=== PATIENT | male | born 1965 | race Caucasian/White ===

== ENCOUNTER 2024-03-01 06:00 | Day surgery (SDC) | payer BC ==
[~2024-03-01 06:00] MED LIST: Sodium Chloride 0.9% 10 ML Syringe FLUSH PRN; Sodium Chloride 0.9% 10 ML Syringe FLUSH SCH
[2024-03-01] MEDS: Lactated Ringers 1,000 ML IV SCH (06:00)
[2024-03-01] MEDS: Pregabalin 25 MG Cap PO ONE (06:16)
[2024-03-01] MEDS: Acetaminophen 325 MG Tab PO ONE (06:16)
[2024-03-01] MEDS: oxyCODONE ER 10 MG TAB.ER PO ONE (06:17)
[2024-03-01] MEDS ORDERED: ceFAZolin 2 GM Vial ONE (06:31)
[2024-03-01] MEDS ORDERED: Midazolam 1 MG/ML 2 ML SDV ONE (06:31)
[2024-03-01] MEDS ORDERED: Ropivacaine 0.5% 5 MG/ML 30 ML SDV ONE (06:31)
[2024-03-01] MEDS ORDERED: Dexamethasone 4 MG/ML 5 ML MDV ONE (07:08)
[2024-03-01] MEDS ORDERED: dexmedeTOMIDine HCl 200 MCG/2 ML SDV ONE (07:08)
[2024-03-01] MEDS ORDERED: Sodium Chloride 0.9% 100 ML ONE (07:09)
[2024-03-01] MEDS: Morphine 8 MG, EPINEPHrine 0.3 MG, Cefuroxime 750 MG, Ketorolac 30 MG, Sodium Chloride ... PRN (08:07)
[2024-03-01] MEDS: Tranexamic Acid 1,000 MG/10 ML Vial ONE (08:13)
[2024-03-01] MEDS ORDERED: Ketorolac 30 MG/ML SDV ONE (08:25)
[2024-03-01] MEDS ORDERED: oxyCODONE 5 MG Tab PO PRN (09:44)
[2024-03-01] MEDS ORDERED: HYDROmorphone 0.5 MG/0.5 ML Syringe IVPUSH PRN (11:10)
[2024-03-01] MEDS ORDERED: fentaNYL 100 MCG/2 ML SDV IVPUSH PRN (11:10)
[2024-03-01] MEDS ORDERED: Ondansetron 4 MG/2 ML SDV IVPUSH PRN (11:10)
[2024-03-01] MEDS: VANCOmycin 1 GM SDV ONE (12:51)
== END 2024-03-01 13:45 | disposition home or self-care (01) ==
LOC: JD.SDS 06:00
PROVIDERS: ATTEND Orthopaedic Surgery
DX: M17.11 Unilateral primary osteoarthritis, right knee (principal); Z88.1 Allergy status to other antibiotic agents; Z79.899 Other long term (current) drug therapy
CPT/HCPCS: 0055T; 27447; 73560; 97110; 97116; 97162; A9270; C1713; C1776; J0171; J0690; J0697; J1100; J1885; J2250; J2272; J2795; J7120; 01400; 64447; J3490

== ENCOUNTER → 2025-01-10 | Day surgery (SDC) | payer BC ==
[~2025-01-10] MED LIST changes: +Dexamethasone 4 MG/ML 5 ML MDV ONE; +Lactated Ringers 1,000 ML ONE; +Midazolam 1 MG/ML 2 ML SDV ONE; +Ropivacaine 0.5% 5 MG/ML 30 ML SDV ONE; +dexmedeTOMIDine HCl 200 MCG/2 ML SDV ONE; +ePHEDrine 50 MG/ML SDV ONE; +fentaNYL 100 MCG/2 ML SDV ONE; +propofoL 500 MG/50 ML 50 ML ONE
[2025-01-10] MEDS: Lactated Ringers 1,000 ML IV SCH (07:40)
[2025-01-10] MEDS: oxyCODONE ER 10 MG TAB.ER PO SCH (07:55)
[2025-01-10] MEDS: Morphine 8 MG, EPINEPHrine 0.3 MG, Cefuroxime 750 MG, Ketorolac 30 MG, Sodium Chloride ... PRN (09:55)
== END | disposition home or self-care (01) ==
LOC: JD.SDS 07:43
PROVIDERS: ATTEND Orthopaedic Surgery
DX: M17.12 Unilateral primary osteoarthritis, left knee (principal); I10 Essential (primary) hypertension; K21.9 Gastro-esophageal reflux disease without esophagitis; E78.5 Hyperlipidemia, unspecified; E66.9 Obesity, unspecified; Z88.1 Allergy status to other antibiotic agents; Z79.899 Other long term (current) drug therapy
CPT/HCPCS: 0055T; 27447; 64447; 64454; 73560; 97116; 97161; 97530; A9270; C1713; C1776; J0169; J0690; J0697; J1100; J1885; J2250; J2272; J2704; J2795; J3010; J3373; J7120; J3490